=== PATIENT | female | born 1990 | race Caucasian/White ===

== ENCOUNTER 2025-02-02 11:23 | Emergency (ER) | payer OTHER, SELFPAY ==
[2025-02-02 11:29] VITALS: BP 114/78; PULSE 76; TEMP 36.7; O2SAT 100; BMI 25.0
--- OUTSIDE RECORDS SUMMARY | 2025-02-02 11:32 | XMS_ITS | Clinical Summary ---
Author Organization [facility] Address [address], [address] [place] [address] Care Team Providers Care Puppet Master Name Role Phone None, Pcp MD Primary Care Provider Unavailabl e Source Comments STORK (Labor and Delivery) documents do not appear in the Encounter Summary [facility] Allergies Active Allergy Reactions Criticality Noted Date Comments Iodine Rash High 11/13/2021 rash Medications * Please verify current medications with patient. No known medications Encounters Date Type Department Care Team Description 12/06/2024 12:11 AM MDT - 12/06/2024 2:33 AM MDT Emergency [facility] - Emergency Services [address] [place] [address] Binu Scott MD Discharge Disposition: Home or Self Care 12/06/2024 Travel from Last 3 Months Social History Tobacco Use Types Packs/Day Years Used Date Smoking Tobacco: Every Day Smokeless Tobacco: Never Alcohol Use Standard Drinks/Week Comments Yes 28 (1 standard drink = 0.6 oz pu re alcohol) a couple of shots a day Comments No Sex and Gender Information Value Date Recorded Sex Assigned at Not on file Legal Sex Female 3:19 AM MDT Gender Identity Not on file Sexual Orientation Not on file Last Filed Vital Signs Vital Sign Reading Time Taken Comments Blood Pressure 109/52 12/06/2024 2:30 AM MDT Pulse 90 12/06/2024 2:30 AM MDT Temperature 36.3 C (97.4 F) 12/06/2024 12:07 AM MDT Respiratory Rate 18 12/06/2024 2:30 AM MDT Oxygen Saturation 97% 12/06/2024 2:30 AM MDT Inhaled Oxygen Concentration - - Weight 61.2 kg (135 lb) 12/06/2024 12:07 AM MDT Height 170.2 cm (5' 7 ) 12/06/2024 12:07 AM MDT Body Mass Index 21.14 12/06/2024 12:07 AM MDT Plan of Treatment Health Maintenance Due Date Last Done Comments HIV Screening 1989 Hepatitis C Screening 1989 Hepatitis B Vaccine (3 of 3 - 3-dose series) 10/16/1997 07/27/1997, 06/26/1997 HPV Vaccine (1 - 3-dose series) 02/09/2004 Tetanus Diphtheria and Pertussis Vaccines (4 - Tdap) 02/09/2008 06/26/1997, 1989, 1989 Cytology with Reflex HPV Testing 2010 Cervical Cancer Screening 2019 HPV/Cotest 2019 COVID-19 Vaccine ( season) 2024 Influenza Vaccine (Season Ended) 2025 07/02/2006 Zoster Vaccines (1 of 2) 2039 RSV Vaccines (1 - 1-dose 75+ series) 02/09/2064 Hib Vaccine Aged Out 06/26/1997 No longer eligi ble based on patient's age to complete this topic IPV Vaccine Completed 06/26/1997, 03/07, 1989, Additional history exists Meningococcal B Vaccine Aged Out 05/30/2006 No l onger eligible based on patient's age to complete this topic Meningococcal Vaccine (MCV4) Completed 05/30/2006 Hepatitis A Vaccine Aged Out No longe r eligible based on patient's age to complete this topic Pneumococcal Vaccine: Pediatrics (0 to 5 Years) and At-Risk Patients (6 to 64 Years) Aged Out No longer eligible based on patient's age to complete this topic Rotavirus Vaccine Aged Out No longer eligible based on patient's age to complete this topic Procedures Procedure Name Priority Date/Time Associated Diagnosis Comments TEST, QUAL STAT 12/06/2024 12:21 AM MDT COMPREHENSIVE METABOLIC PANEL STAT 12/06/2024 12:21 AM MDT CBC WITH DIFFERENTIAL STAT 12/06/2024 12:21 AM MDT GLUCOSE POCT Routine 12/06/2024 12:12 AM MDT from Last 3 Months Results * Test, Qual (12/06/2024 12:21 AM MDT) Test, Qual Negative Negative LAB MANUAL METHOD 12/06/2024 2:[address] [facility] Comment:The result of this t est is qualitative for serum. The result must be evaluated with other data available to the physician. If a negative result is obtained but is suspected, hCG levels may be too low for detection. If clinically indicated another specimen should be collected after 48-72 hours and tested. If waiting 48 hours is not medically advisable, the test result should be confirmed with a quantitative hCG test. Blood Venipuncture / Unknown 12/06/2024 12:21 AM MDT 12/06/2024 1:49 AM MDT us Binu Scott MD LAB BLOOD ORDERABLES Fin al Result [facility] [address] [place] [id number], [facility] [phone] * (ABNORMAL) Comprehensive Metabolic Panel (12/06/2024 12:21 AM MDT) Pathologist [facility] Sodium 141 136 - 145 mmol/L LAB CHEMISTRY METHOD 12/06/2024 2:[address] [facility] Potassium 3.6 3.4 - 5.1 mmol/L LAB CHEMISTRY METHOD 12/06/2024 2:[address] [facility] Comment: Slightly hemolyzed, result may be falsely increased. Chloride 108 101 - 112 mmol/L LAB CHEMISTRY METHOD 12/06/2024 2:[address] [facility] CO2 23 20 - 31 mmol/L LAB CHEMISTRY METHOD 12/06/2024 2:[address] [facility] Anion Gap 10 5 - 15 mmol/L LAB CHEMISTRY METHOD 12/06/2024 2:[address] [facility] BUN 7(L) 9 - 23 mg/dL LAB CHEMISTRY METHOD 12/06/2024 2:[address] [facility] Creatinine 0.97 0.55 - 1.02 mg/dL LAB CHEMISTRY METHOD 12/06/2024 2:[address] [facility] eGFR 78 >=60 mL/min/1. 73 m2 LAB CHEMISTRY METHOD 12/06/2024 2:[address] [facility] Comment: GFR < 60 suggests chronic kidney disease GFR < 15 suggests kidney failure Calculated using CKD-EPI (2020) equation, which has not been validated on patients <18 years of age. Race is no longer included as a factor. BUN/Creatinine Ratio 7(L) 9 - 27 mg/mg LAB CHEMISTRY METHOD 12/06/2024 2:[address] [facility] Glucose 89 74 - 106 mg/dL LAB CHEMISTRY METHOD 12/06/2024 2:[address] [facility] Comment: Random serum glucose over 200 mg/dL diagnostic of diabetes. Fasting glucose over 125 mg/dL diagnostic of diabetes. Calcium 9.1 8.7 - 10.4 mg/dL LAB CHEMISTRY METHOD 12/06/2024 2:[address] [facility] Total Protein 7.2 5.7 - 8.2 g/dL LAB CHEMISTRY METHOD 12/06/2024 2:[address] [facility] Albumin 4.7 3.9 - 5.1 g/dL LAB CHEMISTRY METHOD 12/06/2024 2:[address] [facility] Globulin, Calculated 2.5 1.8 - 3.7 g/dL LAB CHEMISTRY METHOD 12/06/2024 2:[address] [facility] Albumin/Globulin Ratio 1.9 1.0 - 2.2 g/g LAB CHEMISTRY METHOD 12/06/2024 2:[address] [facility] Alkaline Phosphatase 82 46 - 116 U/L LAB CHEMISTRY METHOD 12/06/2024 2:[address] [facility] ALT-SGPT 16 10 - 49 U/L LAB CHEMISTRY METHOD 12/06/2024 2:[address] [facility] AST-SGOT 23 <34 U/L LAB CHEMISTRY METHOD 12/06/2024 2:[address] [facility] Comment: Slightly hemolyzed, result may be falsely increased. Bilirubin, Total 0.4 0.2 - 1.2 mg/dL LAB CHEMISTRY METHOD 12/06/2024 2:[address] [facility] Blood VENOUS LINE / Unknown Venipuncture / Unknown 12/06/2024 12:21 AM MDT 12/06/2024 1:48 AM MDT us Binu Scott MD LAB BLOOD ORDERABLES Fin al Result [facility] [address] [place] [address], [facility] [phone] * CBC with Differential (12/06/2024 12:21 AM MDT) WBC 6.13 3.50 - 11.50 K/uL LAB HEMATOLOGY METHOD 12/06/2024 1:[address] [facility] RBC 4.66 3.80 - 5.40 M/uL LAB HEMATOLOGY METHOD 12/06/2024 1:[address] [facility] Hemoglobin 14.1 12.0 - 16.0 g/dL LAB HEMATOLOGY METHOD 12/06/2024 1:[address] [facility] Hematocrit 41.4 35.0 - 49.0 % LAB HEMATOLOGY METHOD 12/06/2024 1:[address] [facility] MCV 89 80 - 102 fL LAB HEMATOLOGY METHOD 12/06/2024 1:[address] [facility] MCH 30.3 26.0 - 36.0 pg LAB HEMATOLOGY METHOD 12/06/2024 1:[address] [facility] MCHC 34.1 30.0 - 37.0 g/dL LAB HEMATOLOGY METHOD 12/06/2024 1:[address] [facility] RDW Coefficient of Variation 12.4 10.0 - 15.5 % LAB HEMATOLOGY METHOD 12/06/2024 1:[address] [facility] Platelet Count 228 150 - 400 K/uL LAB HEMATOLOGY METHOD 12/06/2024 1:[address] [facility] MPV 9.3 8.6 - 12.3 fL LAB HEMATOLOGY METHOD 12/06/2024 1:[address] [facility] Nucleated RBC, Percent 0.0 <=0.0 /100 WBCs LAB HEMATOLOGY METHOD 12/06/2024 1:[address] [facility] Neutrophil % 73.9 % LAB HEMATOLOGY METHOD 12/06/2024 1:55 AM [facility] Neutrophils, Absolute 4.53 2.00 - 8.00 K/uL LAB HEMATOLOGY METHOD 12/06/2024 1:[address] [facility] Lymphocyte % 17.0 % LAB HEMATOLOGY METHOD 12/06/2024 1:[address] [facility] Lymphocytes, Absolute 1.04 0.60 - 5.20 K/UL LAB HEMATOLOGY METHOD 12/06/2024 1:[address] [facility] Monocyte % 7.3 % LAB HEMATOLOGY METHOD 12/06/2024 1:[address] [facility] Monocytes, Absolute 0.45 0.00 - 1.00 K/uL LAB HEMATOLOGY METHOD 12/06/2024 1:[address] [facility] Eosinophil % 0.7 % LAB HEMATOLOGY METHOD 12/06/2024 1:[address] [facility] Eosinophils, Absolute 0.04 0.00 - 0.80 K/uL LAB HEMATOLOGY METHOD 12/06/2024 1:[address] [facility] Basophil % 0.8 % LAB HEMATOLOGY METHOD 12/06/2024 1:[address] [facility] Basophils, Absolute 0.05 0.00 - 0.20 K/UL LAB HEMATOLOGY METHOD 12/06/2024 1:[address] [facility] Granulocytes, Immature, % 0.3 % LAB HEMATOLOGY METHOD 12/06/2024 1:[address] [facility] Granulocyte, Immature, Absolute 0.02 0.00 - 0.09 K/UL LAB HEMATOLOGY METHOD 12/06/2024 1:[address] [facility] Blood VENOUS LINE / Unknown Venipuncture / Unknown 12/06/2024 12:21 AM MDT 12/06/2024 1:49 AM MDT us Binu Scott MD LAB BLOOD ORDERABLES Fin al Result Performing Organization Address City/State/[facility] Co de Phone Number [facility] [address] [place] [id number] [phone] * (ABNORMAL) Glucose POCT (12/06/2024 12:12 AM MDT) Glucose, POCT 68(L) 70 - 100 mg/dL LAB POINT OF CARE METHOD 12/06/2024 12:[address] [facility] User ID Francisco Seo LAB POINT OF CARE METHOD 12/06/2024 12:[address] [facility] Blood 12/06/2024 12:1 2 AM MDT 12/06/2024 12:[address] [facility] - 12/06/2024 12:14 AM MDT Results performed on POC testing are not called by the laboratory. Binu Scott MD POINT OF CARE TESTS Ashwini ghosh Result [facility] [address] [place] [address], [facility] [phone] from Last 3 Months Insurance [place] MEDICA[employer] Care Teams Puppet Master Relationship Specialty Start Date End Date None, Pcp, MD PCP - General Other or Unknown Specialty 11/13/21
--- OUTSIDE RECORDS SUMMARY | 2025-02-02 11:32 | XMS_ITS | Referral Summary ---
Author Organization [facility] Address [address] [place] [address], [address] [place] [address] Care Team Providers Care Carpet Sewing Machine Operator Name Role Phone None, Pcp MD Primary Care Provider Unavailabl e Source Comments STORK (Labor and Delivery) documents do not appear in the Encounter Summary [facility] Encounters Date Type Department Care Team Description 12/06/2024 Travel 12/06/2024 12:11 AM MDT - 12/06/2024 2:33 AM MDT Emergency [facility] - Emergency Services [address] [place] [address] Binu Scott MD Discharge Disposition: Home or Self Care from Last 3 Months Allergies Active Allergy Reactions Criticality Noted Date Comments Iodine Rash High 11/13/2021 rash Medications * Please verify current medications with patient. No known medications Social History Tobacco Use Types Packs/Day Years [...] 12/06/2024 12:07 AM MDT Plan of Treatment Not on file Procedures Procedure Name Priority Date/Time Associated Diagnosis Comments TEST, QUAL STAT 12/06/2024 12:21 AM MDT COMPREHENSIVE METABOLIC PANEL STAT 12/06/2024 12:21 AM MDT CBC WITH DIFFERENTIAL STAT 12/06/2024 12:21 AM MDT GLUCOSE POCT Routine 12/06/2024 12:12 AM MDT from Last 3 Months Results * Test, Qual (12/06/2024 12:21 AM MDT) Test, Qual Negative Negative LAB MANUAL METHOD 12/06/2024 2:02 AM MDT [facility] Comment:The result of this t est [...] MD LAB BLOOD ORDERABLES Fin al Result [facility] [address] [place] [id number] [phone] * (ABNORMAL) Comprehensive Metabolic Panel (12/06/2024 12:21 AM MDT) Pathologist [facility] Sodium 141 136 - 145 mmol/L LAB CHEMISTRY METHOD 12/06/2024 2:19 AM [facility] Potassium 3.6 3.4 - 5.1 mmol/L LAB CHEMISTRY METHOD 12/06/2024 2:19 AM [facility] Comment: Slightly hemolyzed, result may be falsely increased. Chloride 108 101 - 112 mmol/L LAB CHEMISTRY METHOD 12/06/2024 2:19 AM [facility] CO2 23 20 - 31 mmol/L LAB CHEMISTRY METHOD 12/06/2024 2:19 AM [facility] Anion Gap 10 5 - 15 mmol/L LAB CHEMISTRY METHOD 12/06/2024 2:19 AM [facility] BUN 7(L) 9 - 23 mg/dL LAB CHEMISTRY METHOD 12/06/2024 2:19 AM [facility] Creatinine 0.97 0.55 - 1.02 mg/dL LAB CHEMISTRY METHOD 12/06/2024 2:19 AM [facility] eGFR 78 >=60 mL/min/1. 73 m2 LAB CHEMISTRY METHOD 12/06/2024 2:19 AM [facility] Comment: GFR < 60 suggests chronic kidney disease GFR < 15 suggests kidney failure Calculated using CKD-EPI (2020) equation, which has not been validated on patients <18 years of age. Race is no longer included as a factor. BUN/Creatinine Ratio 7(L) 9 - 27 mg/mg LAB CHEMISTRY METHOD 12/06/2024 2:19 AM [facility] Glucose 89 74 - 106 mg/dL LAB CHEMISTRY METHOD 12/06/2024 2:19 AM [facility] Comment: Random serum glucose over 200 mg/dL diagnostic of diabetes. Fasting glucose over 125 mg/dL diagnostic of diabetes. Calcium 9.1 8.7 - 10.4 mg/dL LAB CHEMISTRY METHOD 12/06/2024 2:19 AM [facility] Total Protein 7.2 5.7 - 8.2 g/dL LAB CHEMISTRY METHOD 12/06/2024 2:19 AM [facility] Albumin 4.7 3.9 - 5.1 g/dL LAB CHEMISTRY METHOD 12/06/2024 2:19 AM [facility] Globulin, Calculated 2.5 1.8 - 3.7 g/dL LAB CHEMISTRY METHOD 12/06/2024 2:19 AM [facility] Albumin/Globulin Ratio 1.9 1.0 - 2.2 g/g LAB CHEMISTRY METHOD 12/06/2024 2:19 AM [facility] Alkaline Phosphatase 82 46 - 116 U/L LAB CHEMISTRY METHOD 12/06/2024 2:19 AM [facility] ALT-SGPT 16 10 - 49 U/L LAB CHEMISTRY METHOD 12/06/2024 2:19 AM [facility] AST-SGOT 23 <34 U/L LAB CHEMISTRY METHOD 12/06/2024 2:19 AM [facility] Comment: Slightly hemolyzed, result may be falsely increased. Bilirubin, Total 0.4 0.2 - 1.2 mg/dL LAB CHEMISTRY METHOD 12/06/2024 2:19 AM [facility] Blood VENOUS LINE / Unknown Venipuncture / Unknown 12/06/2024 12:21 AM MDT 12/06/2024 1:48 AM MDT us Binu Scott MD LAB BLOOD ORDERABLES Fin al Result [facility] [address] [place], [place] [address], [facility] [phone] * CBC with Differential (12/06/2024 12:21 AM MDT) WBC 6.13 3.50 - 11.50 K/uL LAB HEMATOLOGY METHOD 12/06/2024 1:55 AM [facility] RBC 4.66 3.80 - 5.40 M/uL LAB HEMATOLOGY METHOD 12/06/2024 1:55 AM [facility] Hemoglobin 14.1 12.0 - 16.0 g/dL LAB HEMATOLOGY METHOD 12/06/2024 1:55 AM [facility] Hematocrit 41.4 35.0 - 49.0 % LAB HEMATOLOGY METHOD 12/06/2024 1:55 AM [facility] MCV 89 80 - 102 fL LAB HEMATOLOGY METHOD 12/06/2024 1:55 AM [facility] MCH 30.3 26.0 - 36.0 pg LAB HEMATOLOGY METHOD 12/06/2024 1:55 AM [facility] MCHC 34.1 30.0 - 37.0 g/dL LAB HEMATOLOGY METHOD 12/06/2024 1:55 AM [facility] RDW Coefficient of Variation 12.4 10.0 - 15.5 % LAB HEMATOLOGY METHOD 12/06/2024 1:55 AM [facility] Platelet Count 228 150 - 400 K/uL LAB HEMATOLOGY METHOD 12/06/2024 1:55 AM [facility] MPV 9.3 8.6 - 12.3 fL LAB HEMATOLOGY METHOD 12/06/2024 1:55 AM [facility] Nucleated RBC, Percent 0.0 <=0.0 /100 WBCs LAB HEMATOLOGY METHOD 12/06/2024 1:55 AM [facility] Neutrophil % 73.9 % LAB HEMATOLOGY METHOD 12/06/2024 1:55 AM [facility] Neutrophils, Absolute 4.53 2.00 - 8.00 K/uL LAB HEMATOLOGY METHOD 12/06/2024 1:55 AM [facility] Lymphocyte % 17.0 % LAB HEMATOLOGY METHOD 12/06/2024 1:55 AM [facility] Lymphocytes, Absolute 1.04 0.60 - 5.20 K/UL LAB HEMATOLOGY METHOD 12/06/2024 1:55 AM [facility] Monocyte % 7.3 % LAB HEMATOLOGY METHOD 12/06/2024 1:55 AM [facility] Monocytes, Absolute 0.45 0.00 - 1.00 K/uL LAB HEMATOLOGY METHOD 12/06/2024 1:55 AM [facility] Eosinophil % 0.7 % LAB HEMATOLOGY METHOD 12/06/2024 1:55 AM [facility] Eosinophils, Absolute 0.04 0.00 - 0.80 K/uL LAB HEMATOLOGY METHOD 12/06/2024 1:55 AM [facility] Basophil % 0.8 % LAB HEMATOLOGY METHOD 12/06/2024 1:55 AM [facility] Basophils, Absolute 0.05 0.00 - 0.20 K/UL LAB HEMATOLOGY METHOD 12/06/2024 1:55 AM [facility] Granulocytes, Immature, % 0.3 % LAB HEMATOLOGY METHOD 12/06/2024 1:55 AM [facility] Granulocyte, Immature, Absolute 0.02 0.00 - 0.09 K/UL LAB HEMATOLOGY METHOD 12/06/2024 1:55 AM MDT [facility] Blood VENOUS LINE / Unknown Venipuncture / Unknown 12/06/2024 12:21 AM MDT 12/06/2024 1:49 AM MDT Binu Scott MD LAB BLOOD ORDERABLES Fin al Result Performing Organization Address [facility] de Phone Number [facility] [address] [phone] * (ABNORMAL) Glucose POCT (12/06/2024 12:12 AM MDT) [facility] Glucose, POCT 68(L) 70 - 100 mg/dL LAB POINT OF CARE METHOD 12/06/2024 12:14 AM MDT [facility] User ID Francisco Seo LAB POINT OF CARE METHOD 12/06/2024 12:14 AM MDT [facility] Blood 12/06/2024 12:1 2 AM MDT 12/06/2024 12:14 AM MDT Narrative [facility] - 12/06/2024 12:14 AM MDT Results performed on POC testing are not called by the laboratory. Binu Scott MD POINT OF CARE TESTS Ashwini l Result Performing Organization Address [facility] de Phone Number [facility] [address] [phone] from Last 3 Months Insurance [place] MEDICAID Care Teams Carpet Sewing Machine Operator Relationship Specialty Start Date End Date None, Pcp, MD PCP - General Other or Unknown Specialty 11/13/21
--- OUTSIDE RECORDS SUMMARY | 2025-02-02 11:32 | XMS_ITS | Referral Summary ---
Author Organization [facility] Address [address] [place] [address] Care Team Providers Care Health Inspector Food Name Role Phone Pcp, None Given Primary Care Provider Unavailabl e Allergies Active Allergy Reactions Criticality Noted Date Comments Iodine 08/24/2017 Medications ibuprofen (ADVIL,MOTRIN) 600 MG tablet 1 tablet every 6 - 8 hours as needed for pain. 20 tablet 03/02/2019 Active benzocaine-ment hol (CEPACOL SORE THROAT, KIMBERLEE-MEN,) 15-2.6 mg lozenge Dissolve 1 each in the mouth every 4 hours as needed (Sore throat). 20 lozenge 03/02/2019 Active Social History Tobacco Use Types Packs/Day Years Used Date Smoking Tobacco: Every Day Cigarettes Smokeless Tobacco: Never Tobacco Cessation:Ready to Q uit: Not Asked; Counseling Given: Not Answered Alcohol Use Standard Drinks/Week Comments Yes 0 (1 standard drink = 0.6 oz pur e alcohol) 4-6 shots per day Comments No Sex and Gender Information Value Date Recorded Sex Assigned at Not on file Legal Sex Female 1:01 PM MDT Gender Identity Not on file Sexual Orientation Not on file Last Filed Vital Signs Vital Sign Reading Time Taken Comments Blood Pressure 137/85 08/01/2023 11:50 AM [facility] Pulse 92 08/01/2023 11:50 AM [facility] Temperature 36.3 C (97.4 F) 08/01/2023 11:09 AM [facility] Respiratory Rate 16 08/01/2023 11:50 AM [facility] Oxygen Saturation 98% 08/01/2023 11:50 AM [facility] Inhaled Oxygen Concentration - - Weight 63.5 kg (140 lb) 08/01/2023 11:09 AM [facility] Height 170.2 cm (5' 7 ) 08/01/2023 11:09 AM MST Body Mass Index 21.93 08/01/2023 11:09 AM [facility] Plan of Treatment Not on file Insurance MEDICAID Care Teams Health Inspector Food Relationship Specialty Start Date End Date Pcp, None Given PCP - General 08/24/17
--- OUTSIDE RECORDS SUMMARY | 2025-02-02 11:32 | XMS_ITS | Data Portability ---
Author Organization [place] [facility] Address [address] [place] [id number] Assessment Encounter Date Assessment Date Assessment LastModified by Organization Details LastModified Time 09/23/2018 09/23/2018 Overview/Histor y: 28 y/o female new to . She is living in [facility] after being [facility] from [facility]. She has requested visit for 2 day h/o sore throat. Some nausea, no vomiting, no diarrhea. Took Ibuprofen about 15 minutes ago. No known fevers. No drooling. Pain is on right side of throat and has some pain in right ear. Pt is otherwise healthy. Exam: VSS. Pt is alert and oriented, in NAD. Mucous membranes moist. Mild posterior pharynx erythema, there is a small amt of either exudate vs. tonsil stones on right tonsil. Neck supple, no LAD TMs intact bilaterally Lungs CTA bilaterally S1, S2, No MRG DDx considered, but not limited to: viral pharyngitis, strep pharyngitis, URI, OM, post nasal drip Work up/Results: Rapid strep-negative Plan/Discussion : Rapid strep negative. There is questionable exudate (vs. tonsil stones) on right tonsil, so will send back up strep culture to lab. Because pt is in a rehab facility and there is some confusion about how medication will be administered, we have left a printed rx for Amoxicillin and pt will have family fill this if the back up strep culture is positive and she will turn it in to staff and take if needed. Use over the counter pain/fever oral therapist as needed/directed . Warm salt water gargles. Pt does not have a PCP for follow up. Time On Scene with Patient: 00:31:35 gio Not available 09/24/2018 10:19:46 Plan of Treatment Reminders Order Date Submit Date Provider Last Modified By Organization Details Last Modified Time Details Appointments None recorded. Lab rapid strep group A, throat 2018 019 [facility], [address] [place], [address], 9 14:59:39 streptococc us group A, culture, throat 2018 019 [facility], [address] [facility], [place], [address], 9 16:13:18 Referral None recorded. Procedures None recorded. Surgeries None recorded. Imaging None recorded. Medication Orders amoxicillin 500 mg capsule 2018 019 [email or web address] Not available 9 15:06:36 Patient TargetsNo targets recorded. Patient Instructions Encounter Date Encounter Id Patient Instructions Last Modified By Organization Details Last Modified Time 09/23/2018 [id number] Warm salt water gargles 3-4 times per day. Ibuprofen 2 tabs every 4-6 hours with food if needed for pain We will call when result of back up throat culture is available. If it is positive for strep, fill antibiotic that we printed for you and take it until completion If you begin the antibiotic, dispose of toothbrush after 2 days on the antibiotic Please seek care immediately if you develop any of the following symptoms: 1. Uncontrolled fever of at least 101 F or 38.4 C 2. Throat pain that is severe or does not start to improve within 5 to 7 days Call 911 or go to the emergency department if you: 1. Have trouble breathing 2. Cannot control your saliva (drooling) due to difficulty swallowing 3. Have swelling of the neck or tongue 4. Cannot move your neck or have trouble opening your mouth If you have additional concerns or develop a change in your condition between 8am-10pm, please call [facility] at [phone] to help navigate your care. gio Not available 09/23/2018 15:10:24 Reason for Referral None Reported. Results Created Date Observation Date Name Description Value Unit Range Abnormal Flag Note LastModifiedBy Organization Detail LastModifiedTime 09/23/19 19 09/23/2018 rapid strep group A, throa t Strep negati ve Not Available [facility] [address] [place] [address], [phone], 09/23/2018 14:58:27 09/23/19 19 09/25/2018 strep tococ cus group A, cultu re, throa t beta strep gp A culture Negati ve Not Available [facility] ([facility]) [address] [facility], [place], [address], 09/25/2018 16:13:18 Result Notes None recorded. Procedures Surgical History Date Name Laterality Status Provider Name and Address Organization Details Recorded Time section completed Isadora Meier NP [address] [place], [address], [place] [facility] 09/23/2018 14:45:45 Imaging Results None recorded. Procedure Notes None recorded. Medical Equipment None Reported. Allergies Allergen ID Allergen Name Allergen Category Reaction Reaction Severity Criticality Documentation Date Start Date Code Code System Note Provider Name and Address Organization Details Recorded Time 70490 iodine medicatio n Not available Not available Not available 09/23/2018 5933 RxNorm Isadora Meier NP [address] [place], [address], [place] [facility] 9 14:43:50 Medications Name Sig Start Date Stop Date Status Note LastModified by Organization Details LastModified Time amoxicillin 500 mg capsule Take 1 capsule every 12 hours by oral route for 10 days. 019 active Not Available Not Available Not Jb Tenorio (28) active Not Available Not Available Not Available Vitals Date Recorded Body temperature Oxygen saturation Oxygen saturation in Arterial blood by Pulse oximetry Heart rate Respiratory rate Systolic blood pressure Diastolic blood pressure Provider Name and Address Organization Details Last Updated DateTime 9 98.1 [degF] 98 % 98 % 74 /min 14 /min 122 mm[Hg] 78 mm[Hg] Not Available [facility] 9 14:44:50 Social History Question Answer Notes LastModified by Organizat ion Details LastModified Time Tobacco Smoking Status Current Every Day Smoker Isadora Meier NP [address] [place], [address], [place] [facility] 09/23/2018 14:44:22 What Is Your Code Status? Full Code Information not available 09/23/2018 Drugs Abused H/o Drug Addicition Sober At This Time Information not available 09/24/2018 How Many Days In The Past Year Have You Had A Heavy Drinking Consumption (4+ Female, 5+ Male)? 0 Information not available 09/23/2018 Marital Status Informatio n not available 09/23/2018 What Was The Date Of Your Most Recent Tobacco Screening? 09/23/2018 Information not available 02/27/2019 How Much Tobacco Do You Smoke? 0.5 PPD Information not available 09/23/2018 How Many Years Have You Smoked Tobacco? 15 Information not available 09/23/2018 Sex: Unknown Functional Status None recorded. Mental Status None recorded. Family History Relationship Description Onset Age of this Age Resolved Age Notes LastModified by Organization Details LastModified Time Father No current problems or disability Not available 09/23 14:44:14 Mother No current problems or disability Not available 09/23 14:44:14 Medical History Condition Response Diabetes N Coronary Artery Disease N High Cholesterol N Pulmonary Embolism N Cancer N Hypertension N Stroke N Asthma N COPD N Depression N Kidney Disease N Gynecological HistoryNo gynecological history recorded. Obstetrics History GPAL:G 0 P 0 0 0 0 Past Encounters Encounter ID Performer Location Encounter Start Date Encounter Closed Date Diagnosis/Indication Diagnosis SNOMED-CT Code Diagnosis ICD10 Code Diagnosis Note [id number] Isadora Meier NP [facility] [address] [place] [phone] 09/23/2018 14:40:59 09/24/2018 10:21:23 Acute pharyngitis 848638206 J02.9 Health Concerns Section Related Observation LastModified by Organization Detai ls LastModified Time None Recorded Concern Status LastModified by Organization Details LastModified Time None Recorded Advance Directives Directive None Recorded Payers Insurance Date Sequence Insurance Name Policy Number Policy Ho Covered Member ID Ho Member ID Guarantor Name 09/23/2018 1 [place] [facility] Luzma Bello [id number] Luzma Bello 10/09/2018 1 [place] [facility] Luzma Bello [id number] Luzma Bello 09/23/2018 1 *SELF PAY* Luzma Bello [id number] Luzma Bello Notes Date Note Type Note Provider Name and Address Organization Details Recorded Time 09/23/2018 text/html 28 y/o female new to . She is living in [facility] mandated [facility] after being released from correction. She has requested visit for 2 day h/o sore throat. Some nausea, no vomiting, no diarrhea. Took Ibuprofen about 15 minutes ago. No known fevers. No drooling. Pain is on right side of throat and has some pain in right ear. Pt is otherwise healthy. Isadora Meier NP [address] [place], [address], [place] [facility] 09/24/2018 10:19:51 OBGyn Episode No OBEpisode recorded.
--- OUTSIDE RECORDS SUMMARY | 2025-02-02 11:32 | XMS_ITS | Clinical Summary ---
[facility] Organization [facility] Address [address] [place] [address] Care Team Providers Care Lead Javascript Engineer Name Role Phone Pcp, None Given Primary [...] Comments Blood Pressure 137/85 08/01/2023 11:50 AM [facility] Pulse 92 08/01/2023 11:50 AM [facility] Temperature 36.3 C (97.4 F) 08/01/2023 11:09 AM [facility] Respiratory Rate 16 08/01/2023 11:50 AM [facility] Oxygen Saturation 98% 08/01/2023 11:50 AM [facility] Inhaled Oxygen Concentration - - Weight 63.5 kg (140 lb) 08/01/2023 11:09 AM [facility] Height 170.2 cm (5' 7 ) 08/01/2023 11:09 AM [facility] Body Mass Index 21.93 08/01/2023 11:09 AM [facility] Plan of Treatment Not on file [place] [address] [place] [address] MEDICAID Care Teams Lead Javascript Engineer Relationship Specialty Start Date End Date Pcp, None Given PCP - General 08/24/17
[2025-02-02 11:58] LABS: Basophils % 0.8 %; Eosinophils # 0.1 10^3/uL (0.0-0.8); Eosinophils % 2.2 %; Hematocrit 40.7 % (36-47); Lymphocytes # 1.3 10^3/uL (0.8-4.8); Lymphocytes % 26.5 %; Mean Corpuscular HGB Conc 34.4 g/dL (30-55); Mean Corpuscular Hemoglobin 30.5 pg (27-33); Mean Corpuscular Volume 88.7 fl (85-98); Mean Platelet Volume 9.3 fL (7.4-10.4); Monocytes # 0.5 10^3/uL (0.2-0.9); Neutrophils # 3.03 10^3/uL (1.8-7.7); Neutrophils % 60.9 %; Nucleated Red Blood Cells % 0 %; Platelet Count 235 10^3/cmm (157-399); Red Blood Count 4.59 10^6/uL (3.85-5.65); Red Cell Distribution Width 11.8 % (12.1-15.1); White Blood Count 4.98 10^3/uL (3.29-11.43)
--- NOTE | 2025-02-02 12:14 | W.ED.ABDPA2 ---
HPI - Abdominal Pain General: Chief Complaint: Abdominal Pain Stated Complaint: cramping, pt states she is preg but unsure how far Time Seen by Provider: 02/02/25 11:42 Source: patient Mode of arrival: ambulatory Limitations: no limitations History of Present Illness: Patient is a 34-year-old female at what she believes is approximately 6 weeks based on LMP here for complaints of some lower abdominal/pelvic pressure over the past few days. She is not having any vaginal bleeding. confirmation was from home test. She denies dysuria, frequency, urgency. No flank pain. She appears in no acute distress with stable vital signs. MD elicited complaint: abdominal pain Pertinent past history: none Onset (ago): day(s) Pain Consistency: intermittent Location: Pelvis Severity: mild Quality: other (pressure) Radiation: none Migration to: no migration Exacerbating factors: nothing Relieving factors: nothing Associated Symptoms: Denies change in bowel habits, dysuria, fever(s), hematuria, nausea and vomiting Related Data Previous Rx's ?Medication ?Instructions ?Recorded amoxicillin 875 mg-potassium 1 tab PO BID #14 tabs 02/02/25 clavulanate 125 mg tablet vit no.95-ferrous 1 tab PO DAILY #30 tabs 02/02/25 fumarate 28 mg-folic acid 800 mcg tablet ( Multivitamins) Allergies Allergy/AdvReac Type Severity Reaction Status Date / Time Iodinated Contrast Media Allergy Unknown Verified 02/02/25 11:32 Review of Systems Const: Denies: fever(s) Card: Denies: chest pain Resp: Denies: dyspnea GI: Reports: abdominal pain; Denies: nausea, vomiting or change in bowel habits : Reports: pelvic pain; Denies: flank pain, difficulty voiding, dysuria, urinary frequency, urinary urgency, hematuria or vaginal discharge Musc: Denies: back pain Skin/Breast: Denies: rash Neuro: Denies: headache(s) or dizziness Physical Exam Const: COMMON NORMALS: no acute distress, average body habitus, no limitations, healthy appearing, alert and well nourished GENERAL APPEARANCE: cooperative Resp: COMMON NORMALS: normal respiratory effort and clear to auscultation bilaterally AUSCULTATION: clear to auscultation bilaterally Cardio: COMMON NORMALS: regular rate and regular rhythm RATE: regular rate RHYTHM: regular rhythm GI: COMMON NORMALS: Normal to inspection, nondistended, normoactive bowel sounds present, Soft to palpation, No hepatosplenomegaly present and no masses INSPECTION: Yes normal to inspection AUSCULTATION: Yes normoactive bowel sounds PALPATION: Yes Soft to palpation, Yes Tenderness to palpation present (GI) (very mild lower abdominal/pelvic pain; non-surgical exam), No Guarding due to palpation present (GI), No Rigid due to palpation and Yes No hepatosplenomegaly present : COMMON NORMALS: Yes no CVA tenderness BLADDER/KIDNEY EXAM: Yes no CVA tenderness Back/Pelvis: COMMON NORMALS: no CVA tenderness Neuro: SENSORIUM/ORIENTATION: Yes alert Course Vital Signs: Vital signs: Vital Signs Temperature 98.1 F 02/02/25 11:29 Pulse Rate 55 L 02/02/25 13:34 Respiratory Rate 16 02/02/25 13:34 Blood Pressure 125/75 02/02/25 13:34 Pulse Oximetry 100 02/02/25 13:34 Oxygen Delivery Me thod Room Air 02/02/25 11:29 MDM - Abdominal Pain Medical Decision Making Patient appears in no acute distress. Abdominal exam is nonsurgical. Vital signs are stable. Blood work overall is nonactionable. Glucose was mildly low upon arrival and [place] [address]. Ultrasound imaging showing a live intrauterine at approximately 8w4d. UA suspicious for cystitis with positive nitrates, trace leukocyte esterase, 6-10 WBCs, 4+ bacteria. Will cover with antibiotics and culture. Will place case management referral to get her set up with OB. Medical Records I reviewed the patient's medical records. Lab Data I reviewed the patient's lab results. 02/02/25 11:47 02/02/25 11:47 Labs/Radiology: Laboratory Results WBC 4.98 10^3/uL (3.29-11.43) 02/02/25 11:47 RBC 4.59 10^6/uL (3.85-5.65) 02/02/25 11:47 Hgb 14.00 g/dL (11.27-16.99) 02/02/25 11:47 Hct 40.7 % (36-47) 02/02/25 11:47 MCV 88.7 fl (85-98) 02/02/25 11:47 MCH 30.5 pg (27-33) 02/02/25 11:47 MCHC 34.4 g/dL (30-55) 02/02/25 11:47 RDW 11.8 % (12.1-15.1) L 02/02/25 11:47 Plt Count 235 10^3/cmm (157-399) 02/02/25 11:47 MPV 9.3 fL (7.4-10.4) 02/02/25 11:47 Neut % (Auto) 60.9 % 02/02/25 11:47 Lymph % (Auto) 26.5 % 02/02/25 11:47 [place] % (Auto) 9.0 % 02/02/25 11:47 Eos % (Auto) 2.2 % 02/02/25 11:47 Baso % (Auto) 0.8 % 02/02/25 11:47 Neut # (Auto) 3.03 10^3/uL (1.8-7.7) 02/02/25 11:47 Lymph # (Auto) 1.3 10^3/uL (0.8-4.8) 02/02/25 11:47 [place] # (Auto) 0.5 10^3/uL (0.2-0.9) 02/02/25 11:47 Eos # (Auto) 0.1 10^3/uL (0.0-0.8) 02/02/25 11:47 Baso # (Auto) 0.0 10^3/uL (0.0-0.1) 02/02/25 11:47 Nucleated RBC % (auto) 0 % 02/02/25 11:47 Nucleated RBCs # 0.0 /100WBC 02/02/25 11:47 Sodium 136 mmol/L (136-145) 02/02/25 11:47 Potassium 3.9 mmol/L (3.5-5.1) 02/02/25 11:47 Chloride 102 mmol/L (98-107) 02/02/25 11:47 Carbon Dioxide 21 mmol/L (22-29) L 02/02/25 11:47 Anion Gap 16.9 (5-19) 02/02/25 11:47 BUN 11 mg/dL (6-20) 02/02/25 11:47 Creatinine 0.6 mg/dL (0.5-0.9) 02/02/25 11:47 GFR Calculation 113.8 mL/min (90-130) 02/02/25 11:47 Glucose 64 mg/dL (65-115) L 02/02/25 11:47 Calculated Osmolality 279 mOsm/kg (285-295) L 02/02/25 11:47 Calcium 8.9 mg/dL (8.5-10.5) 02/02/25 11:47 Total Bilirubin 0.2 mg/dL (0.15-1.2) 02/02/25 11:47 AST 24 U/L (0-32) 02/02/25 11:47 ALT 23 U/L (0-33) 02/02/25 11:47 Alkaline Phosphatase 82 U/L (35-105) 02/02/25 11:47 Total Protein 6.9 g/dL (6.6-8.7) 02/02/25 11:47 Albumin 4.2 g/dL (3.5-5.2) 02/02/25 11:47 Globulin 2.7 g/dL (1.3-4.6) 02/02/25 11:47 Ser , Semi-Qnt 47345.00 mIU/mL 02/02/25 11:47 Urine Color Yellow (Yellow) 02/02/25 12:21 Urine Appearance Clear (CLEAR) 02/02/25 12:21 Urine pH 6.5 (5-7) 02/02/25 12:21 Ur Specific [place] 1.015 (1.005-1.030) 02/02/25 12:21 Urine Protein Negative (Negative) 02/02/25 12:21 Urine Glucose (UA) Negative (Normal) 02/02/25 12:21 Urine Ketones Negative (Negative) 02/02/25 12:21 Urine Blood Negative (Negative) 02/02/25 12:21 Urine Nitrate Positive (Negative) A 02/02/25 12:21 Urine Bilirubin Negative (Negative) 02/02/25 12:21 Urine Urobilinogen 0.2 mg/dL (Negative) 02/02/25 12:21 Ur Leukocyte Esterase Trace (Negative) A 02/02/25 12:21 Urine RBC 0-2 /hpf (0-2) 02/02/25 12:21 Urine WBC 6-10 /hpf (0-5) 02/02/25 12:21 Ur Squamous Epith Cells 0-5 /hpf (0-5) 02/02/25 12:21 Amorphous Sediment Not Reportable 02/02/25 12:21 Urine Bacteria 4+ /hpf (NONE) H 02/02/25 12:21 Hyaline Casts 0-4 /lpf H 02/02/25 12:21 Blood Type B Positive 02/02/25 11:47 Rho(D) Type Rh positive 02/02/25 11:47 Antibody Screen Negative 02/02/25 11:47 XR interpretation done by ED provider, pending radiology final review Discharge Plan Discharge Patient Disposition: Home Clinical Impression: Urinary tract infection during Qualifiers: Trimester: first trimester Qualified Code(s): O23.41 - Unspecified infection of urinary tract in , first trimester Qualifiers: Weeks of gestation: 8 weeks Qualified Code(s): Z3A.08 - 8 weeks gestation of Condition: Stable Prescriptions: New PNV cmb#95-ferrous fumarate-FA [ Multivitamins] 28 mg iron- 800 mcg tablet 1 tab PO DAILY Qty: 30 0RF amoxicillin-pot clavulanate 875-125 mg tablet 1 tab PO BID Qty: 14 0RF Discharge Orders: Discharge ED (Routine); Ordered 02/02/25 Ordered By: Lainey Noguera Patient Instructions: Patient Portal & Rex Instructions Activity Restrictions/Additional Instructions: Case management should reach out to you this week to help set you [facility] Print Language: Albanian Coding Level of Care Code ED Educator Senior Clinical for Sim Hernandez
[2025-02-02 12:32] LABS: Alanine Aminotransferase 23 U/L (0-33); Albumin Level 4.2 g/dL (3.5-5.2); Alkaline Phosphatase 82 U/L (35-105); Anion Gap 16.9 (5-19); Aspartate Amino Transferase 24 U/L (0-32); Blood Urea Nitrogen 11 mg/dL (6-20); Calcium 8.9 mg/dL (8.5-10.5); Carbon Dioxide 21 mmol/L (22-29); Chloride 102 mmol/L (98-107); Globulin 2.7 g/dL (1.3-4.6); Glomerular Filtration Rate 113.8 mL/min (90-130); Glucose 64 mg/dL (65-115); Osmolality Calculated 279 mOsm/kg (285-295); Potassium 3.9 mmol/L (3.5-5.1); Sodium 136 mmol/L (136-145); Total Bilirubin 0.2 mg/dL (0.15-1.2); Total Protein 6.9 g/dL (6.6-8.7)
[2025-02-02 12:33] VITALS: BP 114/73; O2SAT 99
--- NOTE | 2025-02-02 12:34 | USR_ITS ---
PROCEDURE INFORMATION: Exam: US , Transvaginal Exam date and time: 02/02/2025 12:51 PM Age: 34 years old Clinical indication: Screening exam; Routine US, uterus; Additional info: Pain LABS AND CLINICAL REPORTS: Last menstrual period start date: 12/15/2024 Gestational age (Established): 7 w 0 d Estimated due date (Established): 09/21/2025 TECHNIQUE: Imaging protocol: Real-time transvaginal obstetrical ultrasound of the maternal pelvis with image documentation. Transvaginal imaging was used for better evaluation of the fetus, adnexa, and/or cervix. COMPARISON: No relevant prior studies available. FINDINGS: Gestation: Single live intrauterine with embryonic pole and yolk sac seen. heart rate: 165 bpm BIOMETRY: Mean sac diameter: 2.82 cm. EGA (MSD) is 7 w 6 d [place] rump length (CRL): Mean [place] rump length (CRL): 2.01 cm corresponding to 8 weeks 4 days. MATERNAL: Intraperitoneal space: No free fluid was seen. Other findings: The ovaries were not identified. US/US OB transvaginal [id number] IMPRESSION: Single live intrauterine with a mean sonographic age of 8 weeks 4 days and estimated date of delivery of September 10, 2025. This corresponds to a clinical age of 7 weeks 0 days.
[2025-02-02 12:39] LABS: Bilirubin Urine Negative (Negative); Blood Urine Negative (Negative); Glucose Urine UA Negative (Normal); Ketones Urine Negative (Negative); Leukocyte Esterase Urine Trace (Negative); Nitrate Urine Positive (Negative); Protein Urine Negative (Negative); Specific Gravity, Urine 1.015 (1.005-1.030); Urine Appearance Clear (CLEAR); Urine Color Yellow (Yellow); Urobilinogen Urine 0.2 mg/dL (Negative); pH Urine 6.5 (5-7)
[2025-02-02 12:42] LABS: Add Urine Microscopic? YES; Bacteria Urine 4+ /hpf; Hyaline Casts Urine 0-4 /lpf; RBC Urine 0-2 /hpf (0-2); Squamous Epithelial Cell Urine 0-5 /hpf (0-5)
[2025-02-02 12:53] LABS: Add Urine Culture? Yes
[2025-02-02 13:20] VITALS: BP 104/86
[2025-02-02 13:34] VITALS: BP 125/75; PULSE 55; RESP 16; O2SAT 100
--- NOTE | 2025-02-03 09:19 | DCPLANNER ---
Message sent to obgyn for follow up.Medical Decision Making Patient appears in no acute distress. Abdominal exam is nonsurgical. Vital signs are stable. Blood work overall is nonactionable. Glucose was mildly low upon arrival and [place] [address]. Ultrasound imaging showing a live intrauterine at approximately 8w4d. UA suspicious for cystitis with positive nitrates, trace leukocyte esterase, 6-10 WBCs, 4+ bacteria. Will cover with antibiotics and culture. Will place case management referral to get her set up with OB.
== END 2025-02-02 13:36 | disposition home or self-care (01) ==
PROVIDERS: Emergency Medicine; Emergency Provider Physician Assistant
DX: O23.41 Unspecified infection of urinary tract in pregnancy, first trimester (principal); Z3A.08 8 weeks gestation of pregnancy
CPT/HCPCS: 36415; 76817; 80053; 81001; 84702; 85025; 86850; 86900; 87077; 87086; 87186; 99284

== ENCOUNTER → 2025-02-24 10:03 | Outpatient (BNVA) | payer MEDICAID, SELFPAY | PROVIDERS: Visit Provider Nurse Practitioner Women's Health | DX: Z34.90 Encounter for supervision of normal pregnancy, unspecified, unspecified trimester (principal); N91.2 Amenorrhea, unspecified | CPT/HCPCS: 80307; 81025; 87077; 87086; 87184; 87661 ==

== ENCOUNTER → 2025-02-25 07:56 | Outpatient (BNVA) | payer MEDICAID, SELFPAY | PROVIDERS: Visit Provider Nurse Practitioner Women's Health | DX: Z34.91 Encounter for supervision of normal pregnancy, unspecified, first trimester (principal); Z3A.12 12 weeks gestation of pregnancy | CPT/HCPCS: 76801 ==

== ENCOUNTER 2025-02-25 09:18 | Outpatient (CLI) | payer MEDICAID, SELFPAY ==
[2025-02-25 11:27] LABS: Hematocrit 37.2 % (36-47); Hemoglobin 13.20 g/dL (11.27-16.99); Mean Corpuscular HGB Conc 35.5 g/dL (30-55); Mean Corpuscular Hemoglobin 31.1 pg (27-33); Mean Corpuscular Volume 87.5 fl (85-98); Nucleated Red Blood Cells % 0 %; Platelet Count 198 10^3/cmm (157-399); Red Blood Count 4.25 10^6/uL (3.85-5.65); White Blood Count 5.86 10^3/uL (3.29-11.43)
[2025-02-25 12:01] LABS: Rapid Plasma Reagin Syphilis Nonreactive (Nonreactive)
[2025-02-25 12:03] LABS: Thyroid Stimulating Hormone 0.54 uIU/mL (0.27-4.20)
[2025-02-25 12:05] LABS: HIV 1 & 2 Antigen Non-Reactive (Non-Reactiv); Hepatitis B Surface Antigen Non-Reactive (Nonreactive)
== END 2025-02-25 09:19 | disposition home or self-care (01) ==
LOC: LAB 09:20
PROVIDERS: Visit Provider Nurse Practitioner Women's Health
DX: Z34.90 Encounter for supervision of normal pregnancy, unspecified, unspecified trimester (principal)
CPT/HCPCS: 36415; 84443; 85025; 86592; 86762; 86803; 86850; 86900; 87340; 87806

== ENCOUNTER 2025-03-02 17:07 | Emergency (ER) | payer MEDICAID, SELFPAY ==
[2025-03-02 17:10] VITALS: BP 113/67; PULSE 74; RESP 16; O2SAT 100
--- OUTSIDE RECORDS SUMMARY | 2025-03-02 17:13 | XMS_ITS | Referral Summary ---
Author Organization [facility] Address [address] [place] [address], [address] [place] [address] Care Team Providers Care Illuminator Name Role Phone None, Pcp MD Primary Care Provider Unavailabl e Source Comments STORK (Labor and Delivery) documents do not appear in the Encounter Summary [facility] Encounters Date Type Department Care Team Description 12/06/2024 Travel 12/06/2024 12:11 AM MDT - 12/06/2024 2:33 AM MDT Emergency [facility] - Emergency Services [address] [place] [address] Binu Scott MD Discharge Disposition: Home or [...] LAB MANUAL METHOD 12/06/2024 2:02 AM MDT [facility] Comment:The result of this t [...] MD LAB BLOOD ORDERABLES Fin al Result [facility] [address] [place] [id number] [phone] * (ABNORMAL) Comprehensive Metabolic Panel (12/06/2024 12:21 AM MDT) Pathologist [facility] Sodium 141 136 - 145 mmol/L LAB CHEMISTRY METHOD 12/06/2024 2:19 AM [facility] Potassium 3.6 3.4 - 5.1 mmol/L LAB CHEMISTRY METHOD 12/06/2024 2:19 AM [facility] Comment: Slightly hemolyzed, result may be falsely increased. Chloride 108 101 - 112 mmol/L LAB CHEMISTRY METHOD 12/06/2024 2:19 AM [facility] CO2 23 20 - 31 mmol/L LAB CHEMISTRY METHOD 12/06/2024 2:19 AM [facility] Anion Gap 10 5 - 15 mmol/L LAB CHEMISTRY METHOD 12/06/2024 2:19 AM [facility] BUN 7(L) 9 - 23 mg/dL LAB CHEMISTRY METHOD 12/06/2024 2:19 AM [facility] Creatinine 0.97 0.55 - 1.02 mg/dL LAB CHEMISTRY METHOD 12/06/2024 2:19 AM [facility] eGFR 78 >=60 mL/min/1. 73 m2 LAB CHEMISTRY METHOD 12/06/2024 2:19 AM [facility] Comment: GFR < 60 suggests chronic kidney disease GFR < 15 suggests kidney failure Calculated using CKD-EPI (2020) equation, which has not been validated on patients <18 years of age. Race is no longer included as a factor. BUN/Creatinine Ratio 7(L) 9 - 27 mg/mg LAB CHEMISTRY METHOD 12/06/2024 2:19 AM [facility] Glucose 89 74 - 106 mg/dL LAB CHEMISTRY METHOD 12/06/2024 2:19 AM [facility] Comment: Random serum glucose over 200 mg/dL diagnostic of diabetes. Fasting glucose over 125 mg/dL diagnostic of diabetes. Calcium 9.1 8.7 - 10.4 mg/dL LAB CHEMISTRY METHOD 12/06/2024 2:19 AM [facility] Total Protein 7.2 5.7 - 8.2 g/dL LAB CHEMISTRY METHOD 12/06/2024 2:19 AM [facility] Albumin 4.7 3.9 - 5.1 g/dL LAB CHEMISTRY METHOD 12/06/2024 2:19 AM [facility] Globulin, Calculated 2.5 1.8 - 3.7 g/dL LAB CHEMISTRY METHOD 12/06/2024 2:19 AM [facility] Albumin/Globulin Ratio 1.9 1.0 - 2.2 g/g LAB CHEMISTRY METHOD 12/06/2024 2:19 AM [facility] Alkaline Phosphatase 82 46 - 116 U/L LAB CHEMISTRY METHOD 12/06/2024 2:19 AM [facility] ALT-SGPT 16 10 - 49 U/L LAB CHEMISTRY METHOD 12/06/2024 2:19 AM [facility] AST-SGOT 23 <34 U/L LAB CHEMISTRY METHOD 12/06/2024 2:19 AM [facility] Comment: Slightly hemolyzed, result may be falsely increased. Bilirubin, Total 0.4 0.2 - 1.2 mg/dL LAB CHEMISTRY METHOD 12/06/2024 2:19 AM [facility] Blood VENOUS LINE / Unknown Venipuncture / Unknown 12/06/2024 12:21 AM MDT 12/06/2024 1:48 AM MDT us Binu Scott MD LAB BLOOD ORDERABLES Fin al Result [facility] [address] [place], [place] [address], [facility] [phone] * CBC with Differential (12/06/2024 12:21 AM MDT) WBC 6.13 3.50 - 11.50 K/uL LAB HEMATOLOGY METHOD 12/06/2024 1:55 AM [facility] RBC 4.66 3.80 - 5.40 M/uL LAB HEMATOLOGY METHOD 12/06/2024 1:55 AM [facility] Hemoglobin 14.1 12.0 - 16.0 g/dL LAB HEMATOLOGY METHOD 12/06/2024 1:55 AM [facility] Hematocrit 41.4 35.0 - 49.0 % LAB HEMATOLOGY METHOD 12/06/2024 1:55 AM [facility] MCV 89 80 - 102 fL LAB HEMATOLOGY METHOD 12/06/2024 1:55 AM [facility] MCH 30.3 26.0 - 36.0 pg LAB HEMATOLOGY METHOD 12/06/2024 1:55 AM [facility] MCHC 34.1 30.0 - 37.0 g/dL LAB HEMATOLOGY METHOD 12/06/2024 1:55 AM [facility] RDW Coefficient of Variation 12.4 10.0 - 15.5 % LAB HEMATOLOGY METHOD 12/06/2024 1:55 AM [facility] Platelet Count 228 150 - 400 K/uL LAB HEMATOLOGY METHOD 12/06/2024 1:55 AM [facility] MPV 9.3 8.6 - 12.3 fL LAB HEMATOLOGY METHOD 12/06/2024 1:55 AM [facility] Nucleated RBC, Percent 0.0 <=0.0 /100 WBCs LAB HEMATOLOGY METHOD 12/06/2024 1:55 AM [facility] Neutrophil % 73.9 % LAB HEMATOLOGY METHOD 12/06/2024 1:55 AM [facility] Neutrophils, Absolute 4.53 2.00 - 8.00 K/uL LAB HEMATOLOGY METHOD 12/06/2024 1:55 AM [facility] Lymphocyte % 17.0 % LAB HEMATOLOGY METHOD 12/06/2024 1:55 AM [facility] Lymphocytes, Absolute 1.04 0.60 - 5.20 K/UL LAB HEMATOLOGY METHOD 12/06/2024 1:55 AM [facility] Monocyte % 7.3 % LAB HEMATOLOGY METHOD 12/06/2024 1:55 AM [facility] Monocytes, Absolute 0.45 0.00 - 1.00 K/uL LAB HEMATOLOGY METHOD 12/06/2024 1:55 AM [facility] Eosinophil % 0.7 % LAB HEMATOLOGY METHOD 12/06/2024 1:55 AM [facility] Eosinophils, Absolute 0.04 0.00 - 0.80 K/uL LAB HEMATOLOGY METHOD 12/06/2024 1:55 AM [facility] Basophil % 0.8 % LAB HEMATOLOGY METHOD 12/06/2024 1:55 AM [facility] Basophils, Absolute 0.05 0.00 - 0.20 K/UL LAB HEMATOLOGY METHOD 12/06/2024 1:55 AM [facility] Granulocytes, Immature, % 0.3 % LAB HEMATOLOGY METHOD 12/06/2024 1:55 AM [facility] Granulocyte, Immature, Absolute 0.02 0.00 - 0.09 K/UL LAB HEMATOLOGY METHOD 12/06/2024 1:55 AM MDT [facility] Blood VENOUS LINE / Unknown Venipuncture / Unknown 12/06/2024 12:21 AM MDT 12/06/2024 1:49 AM MDT Binu Scott MD LAB BLOOD ORDERABLES Fin al Result Performing Organization Address [facility] de Phone Number [facility] [address] [phone] * (ABNORMAL) Glucose POCT (12/06/2024 12:12 AM MDT) [facility] Glucose, POCT 68(L) 70 - 100 mg/dL LAB POINT OF CARE METHOD 12/06/2024 12:14 AM MDT [facility] User ID Francisco Seo LAB POINT OF CARE METHOD 12/06/2024 12:14 AM MDT [facility] Blood 12/06/2024 12:1 2 AM MDT 12/06/2024 12:14 AM MDT Narrative [facility] - 12/06/2024 12:14 AM MDT Results performed on POC testing are not called by the laboratory. Binu Scott MD POINT OF CARE TESTS Ashwini l Result Performing Organization Address [facility] de Phone Number [facility] [address] [phone] from Last 3 Months Insurance [place] MEDICA[employer] Care Teams Illuminator Relationship Specialty Start Date End Date None, Pcp, MD PCP - General Other or Unknown Specialty 11/13/21
--- OUTSIDE RECORDS SUMMARY | 2025-03-02 17:13 | XMS_ITS | Clinical Summary ---
Author Organization [facility] Address [address] [place] [address] Care Team Providers Care French Polisher Name Role Phone Pcp, None Given Primary [...] Comments Blood Pressure 137/85 08/01/2023 11:50 AM [facility] Pulse 92 08/01/2023 11:50 AM [facility] Temperature 36.3 C (97.4 F) 08/01/2023 11:09 AM [facility] Respiratory Rate 16 08/01/2023 11:50 AM [facility] Oxygen Saturation 98% 08/01/2023 11:50 AM [facility] Inhaled Oxygen Concentration - - Weight 63.5 kg (140 lb) 08/01/2023 11:09 AM [facility] Height 170.2 cm (5' 7 ) 08/01/2023 11:09 AM [facility] Body Mass Index 21.93 08/01/2023 11:09 AM [facility] Plan of Treatment Not on file Insurance [address] [address] MEDICAID Care Teams French Polisher Relationship Specialty Start Date End Date Pcp, None Given PCP - General 08/24/17
--- OUTSIDE RECORDS SUMMARY | 2025-03-02 17:13 | XMS_ITS | Referral Summary ---
Author Organization [facility] Address [address] [place] [address] Care Team Providers Care Ore Smelter Name Role Phone Pcp, None Given Primary [...] Comments Blood Pressure 137/85 08/01/2023 11:50 AM [facility] Pulse 92 08/01/2023 11:50 AM [facility] Temperature 36.3 C (97.4 F) 08/01/2023 11:09 AM [facility] Respiratory Rate 16 08/01/2023 11:50 AM [facility] Oxygen Saturation 98% 08/01/2023 11:50 AM [facility] Inhaled Oxygen Concentration - - Weight 63.5 kg (140 lb) 08/01/2023 11:09 AM [facility] Height 170.2 cm (5' 7 ) 08/01/2023 11:09 AM [facility] Body Mass Index 21.93 08/01/2023 11:09 AM [facility] Plan of Treatment Not on file Insurance [place] [address] MEDICAID Care Teams Ore Smelter Relationship Specialty Start Date End Date Pcp, None Given PCP - General 08/24/17
--- OUTSIDE RECORDS SUMMARY | 2025-03-02 17:13 | XMS_ITS | Clinical Summary ---
Author Organization [facility] Address [address], [address] [place] [address] Care Team Providers Care Hospice Care Transitions Coordinator Name Role Phone None, Pcp MD Primary Care Provider Unavailabl e Source Comments STORK (Labor and Delivery) documents do not appear in the Encounter Summary [facility] Allergies Active Allergy Reactions Criticality Noted Date Comments Iodine Rash High 11/13/2021 rash Medications * Please verify current medications with patient. No known medications Encounters Date Type Department Care Team Description 12/06/2024 12:11 AM MDT - 12/06/2024 2:33 AM MDT Emergency [facility] - Emergency Services [address] [place] [address] Binu Scott MD Discharge Disposition: Home or [...] LAB MANUAL METHOD 12/06/2024 2:02 AM MDT [facility] Comment:The result of this t [...] MD LAB BLOOD ORDERABLES Fin al Result [facility] [address] [place] [address], [facility] [phone] * (ABNORMAL) Comprehensive Metabolic Panel (12/06/2024 12:21 AM MDT) Pathologist [facility] Sodium 141 136 - 145 mmol/L LAB CHEMISTRY METHOD 12/06/2024 2:19 AM [facility] Potassium 3.6 3.4 - 5.1 mmol/L LAB CHEMISTRY METHOD 12/06/2024 2:19 AM [facility] Comment: Slightly hemolyzed, result may be falsely increased. Chloride 108 101 - 112 mmol/L LAB CHEMISTRY METHOD 12/06/2024 2:19 AM [facility] CO2 23 20 - 31 mmol/L LAB CHEMISTRY METHOD 12/06/2024 2:19 AM [facility] Anion Gap 10 5 - 15 mmol/L LAB CHEMISTRY METHOD 12/06/2024 2:19 AM [facility] BUN 7(L) 9 - 23 mg/dL LAB CHEMISTRY METHOD 12/06/2024 2:19 AM [facility] Creatinine 0.97 0.55 - 1.02 mg/dL LAB CHEMISTRY METHOD 12/06/2024 2:19 AM [facility] eGFR 78 >=60 mL/min/1. 73 m2 LAB CHEMISTRY METHOD 12/06/2024 2:19 AM [facility] Comment: GFR < 60 suggests chronic kidney disease GFR < 15 suggests kidney failure Calculated using CKD-EPI (2020) equation, which has not been validated on patients <18 years of age. Race is no longer included as a factor. BUN/Creatinine Ratio 7(L) 9 - 27 mg/mg LAB CHEMISTRY METHOD 12/06/2024 2:19 AM [facility] Glucose 89 74 - 106 mg/dL LAB CHEMISTRY METHOD 12/06/2024 2:19 AM [facility] Comment: Random serum glucose over 200 mg/dL diagnostic of diabetes. Fasting glucose over 125 mg/dL diagnostic of diabetes. Calcium 9.1 8.7 - 10.4 mg/dL LAB CHEMISTRY METHOD 12/06/2024 2:19 AM [facility] Total Protein 7.2 5.7 - 8.2 g/dL LAB CHEMISTRY METHOD 12/06/2024 2:19 AM [facility] Albumin 4.7 3.9 - 5.1 g/dL LAB CHEMISTRY METHOD 12/06/2024 2:19 AM [facility] Globulin, Calculated 2.5 1.8 - 3.7 g/dL LAB CHEMISTRY METHOD 12/06/2024 2:19 AM [facility] Albumin/Globulin Ratio 1.9 1.0 - 2.2 g/g LAB CHEMISTRY METHOD 12/06/2024 2:19 AM [facility] Alkaline Phosphatase 82 46 - 116 U/L LAB CHEMISTRY METHOD 12/06/2024 2:19 AM [facility] ALT-SGPT 16 10 - 49 U/L LAB CHEMISTRY METHOD 12/06/2024 2:19 AM [facility] AST-SGOT 23 <34 U/L LAB CHEMISTRY METHOD 12/06/2024 2:19 AM [facility] Comment: Slightly hemolyzed, result may be falsely increased. Bilirubin, Total 0.4 0.2 - 1.2 mg/dL LAB CHEMISTRY METHOD 12/06/2024 2:19 AM [facility] Blood VENOUS LINE / Unknown Venipuncture / Unknown 12/06/2024 12:21 AM MDT 12/06/2024 1:48 AM MDT us Binu Scott MD LAB BLOOD ORDERABLES Fin al Result [facility] [address] [place] [address], [facility] [phone] * CBC with Differential (12/06/2024 12:21 AM MDT) WBC 6.13 3.50 - 11.50 K/uL LAB HEMATOLOGY METHOD 12/06/2024 1:55 AM [facility] RBC 4.66 3.80 - 5.40 M/uL LAB HEMATOLOGY METHOD 12/06/2024 1:55 AM [facility] Hemoglobin 14.1 12.0 - 16.0 g/dL LAB HEMATOLOGY METHOD 12/06/2024 1:55 AM [facility] Hematocrit 41.4 35.0 - 49.0 % LAB HEMATOLOGY METHOD 12/06/2024 1:55 AM [facility] MCV 89 80 - 102 fL LAB HEMATOLOGY METHOD 12/06/2024 1:55 AM [facility] MCH 30.3 26.0 - 36.0 pg LAB HEMATOLOGY METHOD 12/06/2024 1:55 AM [facility] MCHC 34.1 30.0 - 37.0 g/dL LAB HEMATOLOGY METHOD 12/06/2024 1:55 AM [facility] RDW Coefficient of Variation 12.4 10.0 - 15.5 % LAB HEMATOLOGY METHOD 12/06/2024 1:55 AM [facility] Platelet Count 228 150 - 400 K/uL LAB HEMATOLOGY METHOD 12/06/2024 1:55 AM [facility] MPV 9.3 8.6 - 12.3 fL LAB HEMATOLOGY METHOD 12/06/2024 1:55 AM [facility] Nucleated RBC, Percent 0.0 <=0.0 /100 WBCs LAB HEMATOLOGY METHOD 12/06/2024 1:55 AM [facility] Neutrophil % 73.9 % LAB HEMATOLOGY METHOD 12/06/2024 1:55 AM [facility] Neutrophils, Absolute 4.53 2.00 - 8.00 K/uL LAB HEMATOLOGY METHOD 12/06/2024 1:55 AM [facility] Lymphocyte % 17.0 % LAB HEMATOLOGY METHOD 12/06/2024 1:55 AM [facility] Lymphocytes, Absolute 1.04 0.60 - 5.20 K/UL LAB HEMATOLOGY METHOD 12/06/2024 1:55 AM [facility] Monocyte % 7.3 % LAB HEMATOLOGY METHOD 12/06/2024 1:55 AM [facility] Monocytes, Absolute 0.45 0.00 - 1.00 K/uL LAB HEMATOLOGY METHOD 12/06/2024 1:55 AM [facility] Eosinophil % 0.7 % LAB HEMATOLOGY METHOD 12/06/2024 1:55 AM [facility] Eosinophils, Absolute 0.04 0.00 - 0.80 K/uL LAB HEMATOLOGY METHOD 12/06/2024 1:55 AM [facility] Basophil % 0.8 % LAB HEMATOLOGY METHOD 12/06/2024 1:55 AM [facility] Basophils, Absolute 0.05 0.00 - 0.20 K/UL LAB HEMATOLOGY METHOD 12/06/2024 1:55 AM [facility] Granulocytes, Immature, % 0.3 % LAB HEMATOLOGY METHOD 12/06/2024 1:55 AM [facility] Granulocyte, Immature, Absolute 0.02 0.00 - 0.09 K/UL LAB HEMATOLOGY METHOD 12/06/2024 1:55 AM [facility] Blood VENOUS LINE / Unknown Venipuncture / Unknown 12/06/2024 12:21 AM MDT 12/06/2024 1:49 AM MDT us Binu Scott MD LAB BLOOD ORDERABLES Fin al Result Performing Organization Address City/State/[facility] Co de Phone Number [facility] [address] [place] [address] [phone] * (ABNORMAL) Glucose POCT (12/06/2024 12:12 AM MDT) Glucose, POCT 68(L) 70 - 100 mg/dL LAB POINT OF CARE METHOD 12/06/2024 12:14 AM T [facility] User ID Francisco Seo LAB POINT OF CARE METHOD 12/06/2024 12:14 AM MDT [facility] Blood 12/06/2024 12:1 2 AM MDT 12/06/2024 12:14 AM MDT Narrative [facility] - 12/06/2024 12:14 AM MDT Results performed on POC testing are not called by the laboratory. Binu Scott MD POINT OF CARE TESTS Ashwini ghosh Result [facility] [address] [place] [address], [facility] [phone] from Last 3 Months Insurance [place] MEDICAID Care Teams Hospice Care Transitions Coordinator Relationship Specialty Start Date End Date None, Pcp, MD PCP - General Other or Unknown Specialty 11/13/21
[2025-03-02 17:43] VITALS: BP 104/53; PULSE 77; RESP 14; O2SAT 100
--- NOTE | 2025-03-02 18:12 | ED_ITS ---
HPI - General Adult General: Chief complaint: General Medical Stated complaint: sharp abd pain, possibly swallowed a piercing History of Present Illness: Patient is 35-year-old female, removed her tongue piercing to go to the dentist, and her tongue piercing is no longer present. Patient is 12 weeks gestation, is well felt this sharp pain in her anus. This is no longer present at this time. Regarding her tongue ring, she states that she did not have the bottom portion screwed on like she thought she did, and both the post and the bottom portion are missing. No abdominal complaints, no dysuria. Last stool was yesterday a.m. Associated symptoms: Deny chest pain, dyspnea, headache(s), nausea, rash, palpitations or vomiting Related Data Previous Rx's ?Medication ?Instructions ?Recorded vit no.95-ferrous 1 tab PO DAILY #30 tabs fumarate 28 mg-folic acid 800 mcg tablet ( Multivitamins) cephalexin 500 mg capsule 500 mg PO BID 7 days #14 cap s 02/26/25 Allergies Allergy/AdvReac Type Severity Reaction Status Date / Time Iodinated Contrast Media Allergy Unknown Verified 03/02/25 08:01 Review of Systems General: Reports: 10 or more systems reviewed and unremarkable except in HPI and below Const: Denies: fever(s) or chills Eyes: Denies: change in vision or blurry vision ENMT: Denies: throat pain or mouth pain Card: Denies: chest pain or palpitations Resp: Denies: dyspnea or non-productive cough GI: Denies: nausea or vomiting : Denies: flank pain or difficulty voiding Musc: Denies: neck pain or back pain Skin/Breast: Denies: rash or pruritus Neuro: Denies: headache(s) or numbness in extremities Psych: Denies: anxiety or depression Endo: Denies: polyuria or polydipsia Jhon/Lymph: Denies: easy bruising or easy bleeding All/Imm: Denies: urticaria or throat swelling PFSH ED PFSH: Family History Father Heart disease Hypertension Diabetes Mother Breast cancer Grandmother Breast cancer Denies family history of Colon cancer Ovarian cancer Uterine cancer Thyroid disease Stroke Social History Smoking and tobacco/nicotine status: current every day tobacco/nicotine user Physical Exam Const: COMMON NORMALS: no acute distress, average body habitus, patient oriented x3, no limitations, healthy appearing, alert and well nourished GENERAL APPEARANCE: cooperative, comfortable and well kempt HENMT: COMMON NORMALS: normocephalic, atraumatic, TM's normal bilaterally and oropharynx normal HEAD & SCALP: normocephalic and atraumatic FACE & SINUS: normal facial exam TYMPANIC MEMBRANE: TM's normal bilaterally MOUTH: Normal oral and palatal mucosa present, tongue normal and Normal salivary glands and ducts present THROAT: posterior oropharynx normal Eye: COMMON NORMALS: Equal, round and reactive pupils present and EOMs intact bilaterally PUPIL: Yes Equal, round and reactive pupils present Chest: COMMONS NORMALS: normal inspection of the chest and normal palpation of entire chest wall Resp: COMMON NORMALS: normal respiratory effort, No retractions and clear to auscultation bilaterally AUSCULTATION: clear to auscultation bilaterally Cardio: COMMON NORMALS: regular rate and regular rhythm RATE: regular rate RHYTHM: regular rhythm GI: COMMON NORMALS: Normal to inspection, nondistended, normoactive bowel sounds present and Soft to palpation PALPATION: Yes Soft to palpation : COMMON NORMALS: Yes no CVA tenderness BLADDER/KIDNEY EXAM: Yes no CVA tenderness Back/Pelvis: COMMON NORMALS: no CVA tenderness Neuro: COMMON NORMALS: patient oriented x3 SENSORIUM/ORIENTATION: Yes alert Psych: APPEARANCE: Yes well kempt Skin: COMMON NORMALS: no rashes or lesions noted and no wounds GENERAL SKIN EXAM: no rashes or lesions noted Course Vital Signs: Vital signs: Vital Signs Pulse Rate 65 03/02/25 18:25 Respiratory Rate 14 03/02/25 17:43 Blood Pressure 104/53 03/02/25 18:25 Pulse Oximetry 99 03/02/25 18:25 Oxygen Delivery Me thod Room Air 03/02/25 17:43 [facility] - General Adult Medical Decision Making Patient is 35-year-old female without abdominal pain, that swallowed her tongue ring. Tongue appears normal, no redness, no actual area of fistula secondary to piercing. Suspect that she has underlying constipation. She is 12 weeks , and does not want undergo any radiation. She will however monitor her stools, and take a stool softener, probiotic. Medical Records I reviewed the patient's medical records. No radiology studies performed this visit Discharge Plan Discharge Patient Disposition: Home Clinical Impression: Foreign body in intestine and colon Qualifiers: Encounter type: initial encounter Qualified Code(s): T18.3XXA - Foreign body in small intestine, initial encounter Constipation Qualifiers: Constipation type: unspecified constipation type Qualified Code(s): K59.00 - Constipation, unspecified Condition: Stable Prescriptions: No Action PNV no.95-ferrous fumarate-FA [ Multivitamins] 28 mg iron- 800 mcg tablet 1 tab PO DAILY Qty: 30 6RF cephalexin 500 mg capsule 500 mg PO BID 7 Days Qty: 14 0RF Rx Instructions: take one capsule twice daily Discharge Orders: Discharge ED (Routine); Ordered 03/02/25 Ordered By: Nelly Singh Discharge Diet: Full LIquid Discharge Activity: Resume usual activity Patient Instructions: Constipation (ED), Patient Portal & Rex Instructions Activity Restrictions/Additional Instructions: Obtain probiotics. Take 2 daily. Additional route would be Colace, stool softener, or/and MiraLAX [id number]. Return to ED if you do not pass gas, have sharp pain in your abdomen Print Language: Armenian Coding Level of Care Code ED Manager Of Care for Sim Hernandez
[2025-03-02 18:25] VITALS: BP 104/53; PULSE 65; O2SAT 99
== END 2025-03-02 18:32 | disposition home or self-care (01) ==
PROVIDERS: Emergency Provider Physician Assistant
DX: T18.3XXA Foreign body in small intestine, initial encounter (principal); K59.00 Constipation, unspecified; Z3A.12 12 weeks gestation of pregnancy; Z72.0 Tobacco use; W44.8XXA Other foreign body entering into or through a natural orifice, initial encounter
CPT/HCPCS: 99282

== ENCOUNTER → 2025-03-30 11:14 | Outpatient (BNVA) | payer BC, MEDICAID, SELFPAY | PROVIDERS: Visit Provider Nurse Practitioner Women's Health | DX: Z34.90 Encounter for supervision of normal pregnancy, unspecified, unspecified trimester (principal) | CPT/HCPCS: 80307; 84315 ==

== ENCOUNTER → 2025-04-03 10:17 | Outpatient (BNVA) | payer BC, MEDICAID, SELFPAY | PROVIDERS: Visit Provider Nurse Practitioner Women's Health | DX: O34.219 Maternal care for unspecified type scar from previous cesarean delivery (principal); O09.529 Supervision of elderly multigravida, unspecified trimester; Z34.90 Encounter for supervision of normal pregnancy, unspecified, unspecified trimester | CPT/HCPCS: 82105; 82950 ==

== ENCOUNTER 2025-05-08 16:25 | Outpatient (CLI) | payer BC, MEDICAID, SELFPAY ==
--- NOTE | 2025-05-08 16:30 | USR_ITS ---
PROCEDURE INFORMATION: Exam: US After First Trimester, Transabdominal Exam date and time: 05/08/2025 4:41 PM Age: 35 years old Clinical indication: Screening exam; Routine US, uterus; Additional info: Z34.90 - encounter for supervision of normal , u. . . , Please schedule between 04/27 and 05/01 LABS AND CLINICAL REPORTS: Last menstrual period start date: Unknown Gestational age (Established): 21 w 6 d Estimated due date (Established): 09/12/2025 TECHNIQUE: Imaging protocol: Real-time transabdominal obstetrical ultrasound of the maternal pelvis and a second or third trimester with image documentation. COMPARISON: US OB <= 14 weeks fetus [id number] 02/25/2025 8:08 AM FINDINGS: Gestation: Single viable IUP heart rate: 150 bpm presentation and position: Variable Placenta: Unremarkable. No subchorionic bleed. Placenta is posterior. Amniotic fluid (Qualitative): Amniotic fluid is normal for gestational age. Amniotic fluid index: Within normal limits ANATOMY: midline falx: Normal cerebellum: Normal lateral ventricles: Normal cisterna magna: Normal choroid plexus: Normal face: Upper lip is normal heart four-chamber view, heart size and position: Normal heart right ventricular outflow tract: Normal heart left ventricular outflow tract: Normal kidneys: Normal stomach: Normal urinary bladder: Normal spine: Normal Umbilical cord and insertion: Unremarkable. upper limbs: Normal lower limbs: Normal external genitalia: Normal BIOMETRY: Gestational age (AUA): 22 weeks 3 days Estimated due date (AUA): 09/08/2025 Estimated weight: 496.45 g. EFW by AC, BPD, FL, HC, [place] 1985 70th percentile Biparietal diameter (BPD): 5.54 cm. EGA (BPD) is 22 w 6 d. 83.7 % percentile Head circumference (HC): 20.4 cm. EGA (HC) is 22 w 4 d. 67.2 % percentile Abdominal circumference (AC): 17.05 cm. EGA (AC) is 22 w 0 d. 47.9 % percentile Femur length (FL): 3.93 cm. EGA (FL) is 22 w 5 d. 66.9 % percentile HC/AC: 1.2. (Normal range: 1.05 - 1.22) FL/HC: 19.26. (Normal range: 18.74 - 20.46) FL/BPD: 70.94 FL/AC: 23.05. (Normal range: 20 - 24) MATERNAL: Uterus: Unremarkable. Cervix: Cervical length measures 6.5 cm. Right ovary/adnexa: Obscured by lack of adequate acoustic window. Left ovary/adnexa: Obscured by lack of adequate acoustic window. Intraperitoneal space: No intraperitoneal free fluid. US/US OB >= 14 weeks fetus [id number] IMPRESSION: Unremarkable viable IUP at 22 weeks 3 days
== END 2025-05-08 16:26 | disposition home or self-care (01) ==
LOC: RAD 16:26
PROVIDERS: Visit Provider Obstetrics & Gynecology
DX: Z34.92 Encounter for supervision of normal pregnancy, unspecified, second trimester (principal); Z3A.22 22 weeks gestation of pregnancy
CPT/HCPCS: 76805

== ENCOUNTER → 2025-05-13 16:49 | Outpatient (BNVA) | payer BC, MEDICAID, SELFPAY | PROVIDERS: Visit Provider Obstetrics & Gynecology | DX: O34.219 Maternal care for unspecified type scar from previous cesarean delivery (principal) | CPT/HCPCS: 84315 ==

== ENCOUNTER → 2025-05-25 09:24 | Outpatient (BNVA) | payer BC, MEDICAID, SELFPAY | PROVIDERS: Visit Provider Nurse Practitioner Women's Health | DX: O34.219 Maternal care for unspecified type scar from previous cesarean delivery (principal) | CPT/HCPCS: 84315 ==